=== PATIENT | male | born 1935 | race Caucasian/White ===

== ENCOUNTER → 2020-03-08 09:03 | Outpatient (BNVA) | payer MEDICARE, SELFPAY | PROVIDERS: PCP Internal Medicine; Referring Provider Internal Medicine; Visit Provider Internal Medicine | DX: I48.21 Permanent atrial fibrillation (principal); E78.5 Hyperlipidemia, unspecified; Z91.030 Bee allergy status; Z79.01 Long term (current) use of anticoagulants; Z79.899 Other long term (current) drug therapy | CPT/HCPCS: 93005; 99212 ==

== ENCOUNTER 2020-04-26 08:22 | Outpatient (REF) | payer MEDICARE, SELFPAY ==
[2020-04-26 09:07] LABS: MANUAL DIFF FLAG NO
[2020-04-26 09:13] LABS: Basophils Absolute Auto 0.1 X10*3/uL (0.0-0.2); Basophils Percent Auto 0.8 % (0-2); Eosinophils Absolute Auto 0.3 X10*3/uL (0.0-0.4); Eosinophils Percent Auto 4.1 % (0-4); Hematocrit 44.2 % (42-52); Hemoglobin 14.5 g/dl (14.0-18.0); Imm Gran Abs Auto 0.03 X10*3/uL (0.00-0.03); Imm Gran Pct Auto 0.5 % (0.0-0.4); Lymphocytes Absolute Auto 2.3 X10*3/uL (1.2-4.9); Lymphocytes Percent Auto 34.7 % (20-40); Mean Corpuscular HGB Conc 32.8 g/dl (31.0-36.0); Mean Corpuscular Volume 97.6 fL (80-98); Mean Platelet Volume 12.2 fL (9.4-12.4); Monocytes Absolute Auto 0.8 X10*3/uL (0.1-1.2); Monocytes Percent Auto 12.4 % (2-11); NRBC Pct Auto 0.3 /100WBC (0.0-0.2); Neutrophils Absolute Auto 3.1 X10*3/uL (2.0-8.3); Neutrophils Percent Auto 47.5 % (45-73); Platelet Count 169 X10*3/uL (160-400); Red Blood Count 4.53 X10*6/uL (4.60-5.80); Red Cell Distribution Width 15.3 % (11.0-16.0); White Blood Count 6.5 X10*3/uL (4.8-10.8)
[2020-04-26 09:52] LABS: Alanine Aminotransferase 16 U/L (0-40); Albumin Level 4.3 g/dL (3.5-5.0); Anion Gap 11 (12-20); Aspartate Amino Transferase 21 U/L (5-37); Bilirubin Total 1.2 mg/dL (0.0-1.0); Blood Urea Nitrogen 12 mg/dL (9-16); Carbon Dioxide 29 mmol/L (22-29); Chloride 104 mmol/L (96-108); Estimated Glomerular Filt Rate > 60; Glucose Fasting 86 mg/dL (60-99); Potassium 4.5 mmol/l (3.3-5.1); Sodium 139 mmol/L (135-145)
[2020-04-26 09:53] LABS: Alkaline Phosphatase 47 U/L (39-117); Cholesterol 142 mg/dL; HDL Cholesterol 40 mg/dL; LDL Cholesterol Calculated 89 mg/dl; Triglycerides 67 mg/dL
[2020-04-26 10:17] LABS: TSH reflex Free T4 1.87 mIU/mL (0.32-4.0)
== END 2020-04-26 08:23 | disposition home or self-care (01) ==
LOC: HO.LAB 08:22
PROVIDERS: PCP Internal Medicine; Visit Provider Internal Medicine
DX: E78.00 Pure hypercholesterolemia, unspecified (principal); I48.91 Unspecified atrial fibrillation; E66.9 Obesity, unspecified
CPT/HCPCS: 36415; 80053; 80061; 84443; 85025

== ENCOUNTER → 2021-03-01 10:25 | Outpatient (REF) | payer MEDICARE, SELFPAY ==
--- NOTE | 2021-03-01 10:41 | HM_ITS ---
Total monitoring time 18 hours 52 minutes. Underlying rhythm is atrial fibrillation. Minimum 32/Min. Maximum 94/Min. Average 56/Min. There were 15 pauses. Longest 2.8 seconds at 03:22am. Very rare PVCs. No patient events. MTDD
--- NOTE | 2021-03-01 10:41 | CA_ITS ---
Transthoracic Echocardiogram Patient (Last, First, Middle): Steve Oden A Gender: Male Date of : 1935 Age: 85 Procedure Date: 03/01/2021 Procedure Type: Transthoracic Echocardiogram Location: OP Height: 180.34 cm Weight: 100.7 kg BSA: 2.20 m2 Heart Rate: bpm BP: 119 / 62 mmHg Practice Advisor: TONY Referring MD: Woo Bernal MD Environmental Education Specialist: Tomasz John MD Symptoms: I48.21 - Permanent atrial fibrillation Study Quality: Good ECG Rhythm: Atrial Fibrillation Conclusions: - 1. Normal LV systolic function with mild LVH with LVEF of 60 65% 2. At least moderate biatrial enlargement 3. Mild aortic regurgitation 4. Normal RV systolic pressure 5. No gross pericardial effusion Findings Left Ventricle Normal left ventricular size and systolic function. There is mildly increased left ventricular wall thickness. The visually estimated ejection fraction is between 60-65%. Diastolic function is indeterminate on the basis of available data. Right Ventricle Normal right ventricular cavity size and systolic function. Atria Moderate biatrial enlargement. There is no evidence of interatrial shunt. Aortic Valve There is mild calcification of the aortic valve. There is no aortic valve stenosis. There is mild aortic valve regurgitation. Mitral Valve There is mild anterior and posterior mitral leaflet thickening. There is trace mitral valve regurgitation. There is no mitral valve stenosis. Pulmonic Valve The pulmonic valve was not well visualized. Tricuspid Valve Normal tricuspid valve structure. There is mild tricuspid valve regurgitation. The right ventricular systolic pressure is normal. The right ventricular systolic pressure is 25 mmHg. Normal right atrial pressure. There is no evidence of pulmonary hypertension. Great Vessels All visible segments of the aorta are normal in size. The pulmonary artery was not well visualized. Venous The inferior vena cava is normal in size and collapses greater than 50% with inspiration. Pericardium/Pleural There is no evidence of pericardial effusion. Prior Study Comparison Changes noted compared to prior study. RV systolic pressure measured to be within normal limits on this study Measurements 2D Linear Measurements IVSd: 1.28 0.6-0.9/0.6-1.0 cm LVIDd: 4.60 3.9-5.3/4.2-5.9 cm LVIDd Index: 2.09 2.4-3.2/2.2-3.1 cm/m2 LVIDs: 2.74 2.0-3.6 cm LVPWd: 1.26 0.7-1.1 cm Ao Root: 3.50 2.1-3.5 cm LA Diam: 4.30 2.7-3.8/3.0-4.0 cm LAIDs Index: 1.95 1.5-2.3 cm/m2 LV Mass: 277.32 67-162/88-224 g LV Mass Index: 126.06 43-95/49-115 g/m2 LVOT Diam: 2.40 3.0+(-)1.3 cm 2D Systolic Function EF 4C: 68.90 >55% EF 2C: 64.30 >55% EF BiP: 65.10 >55% Mitral Valve MV Pk E: 0.89 MV Decel Time: 181.00 E'Lateral: 9.77 E'Medial: 11.10 E/E' Med: 8.00 E/E' Lat: 9.10 PHT: 53.00 MVA PHT: 4.15 Decel Smyth: 5.11 Aortic Valve AoV Pk Kyaw: 1.32 AoV Pk Grad: 7.00 AI Pk Kyaw: 2.57 AI Smyth: 1.47 LVOT LVOT Pk Kyaw: 0.85 LVOT Mn Kyaw: 0.55 LVOT VTI: 0.17 LVOT Pk Grad: 3.00 LVOT Mn Grad: 2.00 LVOT Diam: 2.40 LVOT Area: 4.52 Diastolic Function MV Pk E: 0.89 E'Medial: 11.10 E/E' Med: 8.00 E' Laterial: 9.77 E/E' Lat: 9.10 Right Ventricle TAPSE (mm): 2.49 Tricuspid Valve TR Pk Kyaw: 2.36 TR Pk Grad: 22.00 RA Press: 3.00 RVSP: 25.00 Great Vessels Aorta Ao Root-2D: 3.50 2.0-3.7 cm Updated in Other Vendor System with Status of Final Tomasz John MD electronically signed on 03/01/2021 3:02:16 PM with status of Final
== END ==
LOC: HO.CARD 10:25
PROVIDERS: PCP Internal Medicine; Visit Provider Internal Medicine
DX: I48.21 Permanent atrial fibrillation (principal)
CPT/HCPCS: 93242; 93306

== ENCOUNTER → 2021-03-09 08:40 | Outpatient (BNVA) | payer MEDICARE, SELFPAY | PROVIDERS: PCP Internal Medicine; Referring Provider Internal Medicine; Visit Provider Internal Medicine | DX: I48.21 Permanent atrial fibrillation (principal); E78.5 Hyperlipidemia, unspecified; Z79.01 Long term (current) use of anticoagulants | CPT/HCPCS: 93005; 99212 ==

== ENCOUNTER 2021-04-21 07:32 | Outpatient (REF) | payer MEDICARE, SELFPAY ==
[2021-04-21 07:44] LABS: MANUAL DIFF FLAG NO
[2021-04-21 08:42] LABS: Basophils Percent Auto 0.6 % (0-2); Eosinophils Absolute Auto 0.3 X10*3/uL (0.0-0.4); Eosinophils Percent Auto 4.7 % (0-4); Hematocrit 45.6 % (42.0-52.0); Hemoglobin 14.9 g/dl (14.0-18.0); Imm Gran Abs Auto 0.03 X10*3/uL (0.00-0.03); Imm Gran Pct Auto 0.5 % (0.0-0.4); Lymphocytes Absolute Auto 2.2 X10*3/uL (1.2-4.9); Lymphocytes Percent Auto 34.5 % (20-40); Mean Corpuscular HGB Conc 32.7 g/dl (31.0-36.0); Mean Corpuscular Hemoglobin 32.2 pg (27.0-33.0); Mean Corpuscular Volume 98.5 fL (80.0-98.0); Mean Platelet Volume 12.2 fL (9.4-12.4); Monocytes Absolute Auto 0.7 X10*3/uL (0.1-1.2); Monocytes Percent Auto 11.7 % (2-11); Platelet Count 181 X10*3/uL (160-400); Red Blood Count 4.63 X10*6/uL (4.60-5.80); Red Cell Distribution Width 15.2 % (11.0-16.0); White Blood Count 6.3 X10*3/uL (4.8-10.8)
[2021-04-21 09:04] LABS: Alanine Aminotransferase 17 U/L (0-40); Albumin Level 4.3 g/dL (3.5-5.0); Alkaline Phosphatase 52 U/L (39-117); Anion Gap 12 (12-20); Aspartate Amino Transferase 21 U/L (5-37); Bilirubin Total 1.3 mg/dL (0.0-1.0); Blood Urea Nitrogen 9 mg/dL (9-16); Calcium 9.4 mg/dL (8.4-10.2); Carbon Dioxide 30 mmol/L (22-29); Chloride 105 mmol/L (96-108); Cholesterol 144 mg/dL; Estimated Glomerular Filt Rate > 60; Glucose Random 88 mg/dL (60-115); HDL Cholesterol 42 mg/dL; LDL Cholesterol Calculated 88 mg/dl; Potassium 4.5 mmol/L (3.3-5.1); Sodium 142 mmol/L (135-145); Total Protein 8.2 g/dL (6.5-8.0); Triglycerides 71 mg/dL
[2021-04-21 09:19] LABS: B Type Natriuretic Peptide 156 pg/mL (<100)
[2021-04-21 09:27] LABS: Free T4 (Free Thyroxine) 0.84 ng/dL (0.71-1.85); Thyroid Stimulating Hormone 1.97 uIU/mL (0.32-4.0)
[2021-04-21 09:54] LABS: Folate 19.8 ng/mL (> or = 4.0); Vitamin B12 362 pg/mL (200-900)
== END 2021-04-21 07:33 | disposition home or self-care (01) ==
LOC: HO.LAB 07:32
PROVIDERS: PCP Internal Medicine; Visit Provider Internal Medicine
DX: E78.00 Pure hypercholesterolemia, unspecified (principal); I48.21 Permanent atrial fibrillation
CPT/HCPCS: 36415; 80053; 80061; 82607; 82746; 83880; 84439; 84443; 85025

== ENCOUNTER → 2021-10-24 11:45 | Outpatient (REF) | payer MEDICARE, SELFPAY ==
--- NOTE | 2021-10-24 11:51 | ECG_ITS ---
Test Reason : PRE OP Blood Pressure : / mmHG Vent. Rate : 056 BPM Atrial Rate : 000 BPM P-R Int : 000 ms QRS Dur : 098 ms QT Int : 436 ms P-R-T Axes : 000 042 025 degrees QTc Int : 420 ms Atrial fibrillation with slow ventricular response Abnormal ECG When compared with ECG of 20-AUG-2009 08:08, Nonspecific T wave abnormality no longer evident in Anterior leads Referred By: Elzbieta Trujillo Electronically Signed By:MORRIS OLGUIN MD
[2021-10-24 12:12] LABS: Hematocrit 42.4 % (42.0-52.0); Hemoglobin 13.9 g/dl (14.0-18.0); Mean Corpuscular HGB Conc 32.8 g/dl (31.0-36.0); Mean Corpuscular Hemoglobin 32.2 pg (27.0-33.0); Mean Corpuscular Volume 98.1 fL (80.0-98.0); Mean Platelet Volume 11.2 fL (9.4-12.4); Platelet Count 169 X10*3/uL (160-400); Red Blood Count 4.32 X10*6/uL (4.60-5.80); Red Cell Distribution Width 15.2 % (11.0-16.0); White Blood Count 6.2 X10*3/uL (4.8-10.8)
[2021-10-24 12:15] LABS: INTERNATIONAL NORM RATIO 1.3 (0.9-1.1); Prothrombin Time 15.4 SEC (9.9-13.0)
[2021-10-24 13:01] LABS: TSH reflex Free T4 1.48 uIU/mL (0.32-4.0)
[2021-10-24 13:45] LABS: Anion Gap 11 (12-20); Blood Urea Nitrogen 11 mg/dL (9-16); Calcium 9.1 mg/dL (8.4-10.2); Carbon Dioxide 28 mmol/L (22-29); Chloride 105 mmol/L (96-108); Estimated Glomerular Filt Rate > 60; Glucose Random 87 mg/dL (60-115); Potassium 4.1 mmol/L (3.3-5.1); Sodium 140 mmol/L (135-145)
== END ==
LOC: HO.CARD 11:45
PROVIDERS: PCP Internal Medicine; Visit Provider Nurse Practitioner Family
DX: Z01.818 Encounter for other preprocedural examination (principal); I48.91 Unspecified atrial fibrillation
CPT/HCPCS: 36415; 80048; 84443; 85027; 85610; 93005

== ENCOUNTER → 2022-03-02 10:47 | Outpatient (REF) | payer MEDICARE, SELFPAY ==
--- NOTE | 2022-03-02 10:51 | HM_ITS ---
Conclusion: 1. Patient was monitored for total period of 3 days and 1 hour 2. Baseline was atrial fibrillation with average heart of 57 beats per minute with lowest heart rate of 28 beats per minute during sleeping hours 3. Multiple pauses greater than 3 seconds noted most of them during sleeping hours with the longest pause of 3.2 seconds 4. Occasional PVCs noted 5. Frequent slow ventricular response to atrial fibrillation with 40% of time heart rate below 60 beats per minute 6. Patient reported 1 event without symptoms correlated with AFib MTDD
== END ==
LOC: HO.CARD 10:47
PROVIDERS: Visit Provider Internal Medicine
DX: I48.21 Permanent atrial fibrillation (principal)
CPT/HCPCS: 93242

== ENCOUNTER 2022-04-09 09:04 | Outpatient (REF) | payer MEDICARE, SELFPAY ==
[2022-04-09 09:15] LABS: MANUAL DIFF FLAG NO
[2022-04-09 09:55] LABS: Basophils Absolute Auto 0.1 X10*3/uL (0.0-0.2); Eosinophils Absolute Auto 0.3 X10*3/uL (0.0-0.4); Eosinophils Percent Auto 4.7 % (0-4); Hematocrit 44.5 % (42.0-52.0); Hemoglobin 14.8 g/dl (14.0-18.0); Imm Gran Abs Auto 0.03 X10*3/uL (0.00-0.03); Imm Gran Pct Auto 0.5 % (0.0-0.4); Lymphocytes Percent Auto 33.3 % (20-40); Mean Corpuscular HGB Conc 33.3 g/dl (31.0-36.0); Mean Corpuscular Hemoglobin 32.2 pg (27.0-33.0); Mean Corpuscular Volume 96.7 fL (80.0-98.0); Mean Platelet Volume 11.8 fL (9.4-12.4); Monocytes Absolute Auto 0.8 X10*3/uL (0.1-1.2); Monocytes Percent Auto 12.6 % (2-11); Neutrophils Absolute Auto 2.9 x10*3/uL (2.0-8.3); Neutrophils Percent Auto 47.9 % (45-73); Platelet Count 176 X10*3/uL (160-400); Red Cell Distribution Width 15.1 % (11.0-16.0); White Blood Count 6.1 X10*3/uL (4.8-10.8)
[2022-04-09 11:33] LABS: Alanine Aminotransferase 18 U/L (0-40); Albumin Level 4.3 g/dL (3.5-5.0); Alkaline Phosphatase 51 U/L (39-117); Anion Gap 9 (12-20); Aspartate Amino Transferase 20 U/L (5-37); Bilirubin Total 1.3 mg/dL (0.0-1.0); Blood Urea Nitrogen 11 mg/dL (9-16); Calcium 9.1 mg/dL (8.4-10.2); Carbon Dioxide 30 mmol/L (22-29); Chloride 106 mmol/L (96-108); Cholesterol 151 mg/dL; Estimated Glomerular Filt Rate > 60; Free T4 (Free Thyroxine) 0.91 ng/dL (0.71-1.85); Glucose Random 90 mg/dL (60-115); HDL Cholesterol 44 mg/dL; LDL Cholesterol Calculated 90 mg/dl; Potassium 4.3 mmol/L (3.3-5.1); Sodium 141 mmol/L (135-145); Thyroid Stimulating Hormone 1.93 uIU/mL (0.32-4.0); Triglycerides 86 mg/dL
[2022-04-09 11:48] LABS: Folate 16.8 ng/mL (> or = 4.0); Vitamin B12 351 pg/mL (200-900)
== END 2022-04-09 09:05 | disposition home or self-care (01) ==
LOC: HO.LAB 09:04
PROVIDERS: PCP Internal Medicine; Visit Provider Internal Medicine
DX: E78.00 Pure hypercholesterolemia, unspecified (principal); E78.5 Hyperlipidemia, unspecified
CPT/HCPCS: 36415; 80053; 80061; 82607; 82746; 84439; 84443; 85025

== ENCOUNTER → 2022-05-16 14:26 | Outpatient (BNVA) | payer MEDICARE, SELFPAY | PROVIDERS: PCP Internal Medicine; Referring Provider Internal Medicine; Visit Provider Internal Medicine | DX: I48.21 Permanent atrial fibrillation (principal) | CPT/HCPCS: 93005; 99212 ==

== ENCOUNTER 2022-10-15 09:19 | Outpatient (REF) | payer MEDICARE, SELFPAY ==
[2022-10-15 09:33] LABS: MANUAL DIFF FLAG NO
[2022-10-15 10:55] LABS: Basophils Absolute Auto 0.1 X10*3/uL (0.0-0.2); Basophils Percent Auto 0.9 % (0-2); Eosinophils Absolute Auto 0.3 X10*3/uL (0.0-0.4); Hematocrit 40.7 % (42.0-52.0); Hemoglobin 13.3 g/dl (14.0-18.0); Imm Gran Abs Auto 0.04 X10*3/uL (0.00-0.03); Imm Gran Pct Auto 0.7 % (0.0-0.4); Lymphocytes Absolute Auto 1.9 X10*3/uL (1.2-4.9); Lymphocytes Percent Auto 32.1 % (20-40); Mean Corpuscular HGB Conc 32.7 g/dl (31.0-36.0); Mean Corpuscular Hemoglobin 31.4 pg (27.0-33.0); Mean Corpuscular Volume 96.2 fL (80.0-98.0); Mean Platelet Volume 11.3 fL (9.4-12.4); Monocytes Absolute Auto 0.8 X10*3/uL (0.1-1.2); Monocytes Percent Auto 13.3 % (2-11); Neutrophils Absolute Auto 2.8 x10*3/uL (2.0-8.3); Platelet Count 213 X10*3/uL (160-400); Red Blood Count 4.23 X10*6/uL (4.60-5.80); Red Cell Distribution Width 15.3 % (11.0-16.0); White Blood Count 5.9 X10*3/uL (4.8-10.8)
[2022-10-15 11:42] LABS: Alanine Aminotransferase 16 U/L (0-40); Albumin Level 3.9 g/dL (3.5-5.0); Alkaline Phosphatase 50 U/L (39-117); Anion Gap 11 (12-20); Aspartate Amino Transferase 18 U/L (5-37); Bilirubin Total 1.2 mg/dL (0.0-1.0); Blood Urea Nitrogen 11 mg/dL (9-16); Carbon Dioxide 26 mmol/L (22-29); Chloride 108 mmol/L (96-108); Cholesterol 142 mg/dL; Estimated Glomerular Filt Rate > 60; Glucose Random 84 mg/dL (60-115); HDL Cholesterol 39 mg/dL; LDL Cholesterol Calculated 86 mg/dl; Potassium 4.1 mmol/L (3.3-5.1); Sodium 141 mmol/L (135-145); Total Protein 7.8 g/dL (6.5-8.0); Triglycerides 87 mg/dL
[2022-10-15 12:12] LABS: Folate 15.8 ng/mL (> or = 4.0); Free T4 (Free Thyroxine) 0.89 ng/dL (0.71-1.85); Thyroid Stimulating Hormone 1.95 uIU/mL (0.32-4.0); Vitamin B12 462 pg/mL (200-900)
== END 2022-10-15 09:20 | disposition home or self-care (01) ==
LOC: HO.LAB 09:19
PROVIDERS: PCP Internal Medicine; Visit Provider Internal Medicine
DX: I48.21 Permanent atrial fibrillation (principal); E78.00 Pure hypercholesterolemia, unspecified
CPT/HCPCS: 36415; 80053; 80061; 82607; 82746; 84439; 84443; 85025

== ENCOUNTER 2022-11-16 10:04 | Outpatient (REF) | payer MEDICARE, SELFPAY ==
[2022-11-16 10:23] LABS: MANUAL DIFF FLAG NO
[2022-11-16 10:52] LABS: Basophils Percent Auto 0.7 % (0-2); Eosinophils Absolute Auto 0.3 X10*3/uL (0.0-0.4); Eosinophils Percent Auto 6.5 % (0-4); Hematocrit 40.6 % (42.0-52.0); Hemoglobin 13.3 g/dl (14.0-18.0); Imm Gran Abs Auto 0.01 X10*3/uL (0.00-0.03); Imm Gran Pct Auto 0.2 % (0.0-0.4); Immature Retic Fraction 12.1 % (2.3-13.4); Lymphocytes Absolute Auto 1.6 X10*3/uL (1.2-4.9); Lymphocytes Percent Auto 34.8 % (20-40); Mean Corpuscular HGB Conc 32.8 g/dl (31.0-36.0); Mean Corpuscular Volume 97.8 fL (80.0-98.0); Mean Platelet Volume 11.5 fL (9.4-12.4); Monocytes Absolute Auto 0.6 X10*3/uL (0.1-1.2); Monocytes Percent Auto 13.7 % (2-11); Neutrophils Percent Auto 44.1 % (45-73); Platelet Count 169 X10*3/uL (160-400); Red Blood Count 4.15 X10*6/uL (4.60-5.80); Red Cell Distribution Width 15.9 % (11.0-16.0); Retic HGB Equivalent 35.8 pg (30.0-35.0); Reticulocyte Percent 1.8 % (0.5-1.8); Reticulocytes Absolute 0.076 X10*6/uL (0.026-0.095); White Blood Count 4.5 X10*3/uL (4.8-10.8)
[2022-11-16 11:52] LABS: Iron 112 mcg/dL (45-160); Percent Iron Saturation 40 % (15-50); Total Iron Binding Capacity 282 mcg/dL (228-428); Unsaturated Iron Binding 170 ug/dL
[2022-11-16 12:10] LABS: Ferritin 158 ng/mL (20-250)
== END 2022-11-16 10:05 | disposition home or self-care (01) ==
LOC: HO.LAB 10:04
PROVIDERS: PCP Internal Medicine; Visit Provider Internal Medicine
DX: D64.9 Anemia, unspecified (principal)
CPT/HCPCS: 36415; 82728; 83540; 85025; 85045

== ENCOUNTER 2023-04-19 08:14 | Outpatient (REF) | payer MEDICARE, SELFPAY ==
[2023-04-19 08:36] LABS: MANUAL DIFF FLAG NO
[2023-04-19 09:21] LABS: Basophils Percent Auto 0.7 % (0-2); Eosinophils Absolute Auto 0.3 X10*3/uL (0.0-0.4); Eosinophils Percent Auto 4.6 % (0-4); Hematocrit 41.3 % (42.0-52.0); Hemoglobin 13.8 g/dl (14.0-18.0); Imm Gran Abs Auto 0.02 X10*3/uL (0.00-0.03); Imm Gran Pct Auto 0.4 % (0.0-0.4); Lymphocytes Absolute Auto 1.7 X10*3/uL (1.2-4.9); Lymphocytes Percent Auto 30.2 % (20-40); Mean Corpuscular HGB Conc 33.4 g/dl (31.0-36.0); Mean Corpuscular Hemoglobin 32.5 pg (27.0-33.0); Mean Corpuscular Volume 97.4 fL (80.0-98.0); Mean Platelet Volume 11.6 fL (9.4-12.4); Monocytes Absolute Auto 0.6 X10*3/uL (0.1-1.2); Monocytes Percent Auto 11.2 % (2-11); Neutrophils Percent Auto 52.9 % (45-73); Platelet Count 164 X10*3/uL (160-400); Red Blood Count 4.24 X10*6/uL (4.60-5.80); Red Cell Distribution Width 15.7 % (11.0-16.0); White Blood Count 5.7 X10*3/uL (4.8-10.8)
[2023-04-19 09:50] LABS: Alanine Aminotransferase 13 U/L (0-40); Albumin Level 4.2 g/dL (3.5-5.0); Alkaline Phosphatase 52 U/L (39-117); Anion Gap 13 (12-20); Aspartate Amino Transferase 18 U/L (5-37); Bilirubin Total 1.2 mg/dL (0.0-1.0); Blood Urea Nitrogen 11 mg/dL (9-16); Calcium 9.4 mg/dL (8.4-10.2); Carbon Dioxide 27 mmol/L (22-29); Chloride 107 mmol/L (96-108); Cholesterol 134 mg/dL (<200); Estimated Glomerular Filt Rate > 60; Glucose Random 89 mg/dL (60-115); HDL Cholesterol 41 mg/dL (>40); LDL Cholesterol Calculated 80 mg/dL (<100); Potassium 4.4 mmol/L (3.3-5.1); Sodium 143 mmol/L (135-145); Total Protein 8.3 g/dL (6.5-8.0); Triglycerides 67 mg/dL (<150)
[2023-04-19 09:57] LABS: Free T4 (Free Thyroxine) 0.83 ng/dL (0.71-1.85); Thyroid Stimulating Hormone 1.82 uIU/mL (0.32-4.0)
[2023-04-19 10:19] LABS: Folate 14.2 ng/mL (> or = 4.0); Vitamin B12 463 pg/mL (200-900)
== END 2023-04-19 08:15 | disposition home or self-care (01) ==
LOC: HO.LAB 08:14
PROVIDERS: PCP Internal Medicine; Visit Provider Internal Medicine
DX: I48.21 Permanent atrial fibrillation (principal); E78.00 Pure hypercholesterolemia, unspecified
CPT/HCPCS: 36415; 80053; 80061; 82607; 82746; 84439; 84443; 85025

== ENCOUNTER 2023-04-22 09:23 | Outpatient (AMB) | payer MEDICARE, SELFPAY ==
[2023-04-22 09:24] VITALS: BP 136/70; PULSE 57; O2SAT 96; BMI 34.2
--- NOTE | 2023-04-22 09:24 | A.OFFPC_ITS ---
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 Required: No Accompanied by: Self / Same As Patient Allergies bee pollen [Bee Stings] Allergy (Unknown, Verified 04/22/23 09:25) UNKNOWN Tobacco use date assessed: 10/17/22 Fall risk assessment: No Falls in past year Last assessed Fall Risk: 04/22/23 Dental Screening Dental Screen Date: 04/22/23 Did you have a dental visit in the last 12 months?: No Did you have a dental problem in the last 6 months where you did not have access to dental care?: No Was dental information given to patient?: No (no teeth) HPI anemia, Afib HPI Details 87-year-old obese male with atrial fibri llation hypercholesterolemia coming in for follow-up. Last seen in October 2022.. Patient did receive the COVID and flu shot. Patient is [facility]'s has a history. 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 Son No problems noted. Social History Housing: House Alcohol intake: current Alcohol intake frequency: does not drink Alcohol type: beer Patient Tobacco Use Status: Former Tobacco user Tobacco use type: Cigarette e-Cigarette/Vaping Use: Never Used Second Hand Smoke Exposure: No service: No Current occupational status: retired Cognitive needs: No Hearing needs: No Vision needs: Yes (glasses) Questionnaire Thrive Questionnaire Date Thrive assessed: 10/17/22 JEANINE-7 AMB Questionnaire JEANINE-7 Date JEANINE - 7 assessed: 10/17/22 Source: Developed by Drs. Gopi Lee, Andra Germain, Antwan Iglesias and colleagues, with an educational david from [employer]. Physical exam (Primary Care) Vital Signs: Last Vital Signs Pulse 57 04/22/23 09:24 BP 136/70 04/22/23 09:24 Pulse Ox 96 04/22/23 09:24 Oxygen Delivery Method Room Air 04/22/23 09:24 BMI result Body Mass Index 34.2 Tobacco/Smoking Status: Tobacco use Status Tobacco use date assessed 10/17/22 04/22/23 09:26 Patient Tobacco Use Status Former Tobacco user 04/22/23 09:26 Tobacco use type Cigarette 04/22/23 09:26 e-Cigarette/Vaping Use Never Used 04/22/23 09:26 Thrive Assessment: Date of Thrive Assessment Date Thrive assessed 10/17/22 04/22/23 09:26 Const General: alert; No acute distress Eyes Conjunctivae: conjunctivae normal Resp Auscultation: clear to auscultation bilaterally Cardio Rate: regular rate Rhythm: regular rhythm GI Inspection: Yes normal to inspection Extrem General: Yes normal to inspection and No edema Assessment and Plan Assessment & Plan (1) Obesity (BMI 30-39.9): Code(s): E66.9 - Obesity, unspecified Plan: Diet and exercise (2) Hyperlipidemia, unspecified: Code(s): E78.5 - Hyperlipidemia, unspecified Qualifiers: Hyperlipidemia type: unspecified Qualified Code(s): E78.5 - Hyperlipidemia, unspecified Plan: Avoid fried foods, chicken skin, eggs, butter margarine, pastries and meat. Be it pork or beef they have a lot of cholesterol LDL goal of less than 130 and triglyceride of less than 150 (3) Permanent atrial fibrillation: Code(s): I48.21 - Permanent atrial fibrillation Plan: Continue with anticoagulation (4) Anemia: Code(s): D64.9 - Anemia, unspecified Plan: Stable continue to monitor Orders: Orders Complete Blood Count Auto Diff 6 Months I48.21 - Permanent atrial fibrillation B Type Natriuretic Peptide 6 Months I48.21 - Permanent atrial fibrillation Comprehensive Met. Panel 6 Months I48.21 - Permanent atrial fibrillation Coding Level of Care Code Est Pt Level 4 (15849) Diagnoses Obesity (BMI 30-39.9) E66.9 Hyperlipidemia, unspecified hyperlipidemia type E78.5 Hyperlipidemia type: unspecified Permanent atrial fibrillation I48.21 Anemia D64.9
== END 2023-04-22 09:50 | disposition home or self-care (01) ==
PROVIDERS: PCP Internal Medicine; Visit Provider Internal Medicine
DX: E78.5 Hyperlipidemia, unspecified (principal); E66.9 Obesity, unspecified; I48.21 Permanent atrial fibrillation; Z68.34 Body mass index [BMI] 34.0-34.9, adult; D64.9 Anemia, unspecified
CPT/HCPCS: 99214

== ENCOUNTER 2023-05-16 10:03 | Outpatient (AMB) | payer MEDICARE, SELFPAY ==
[2023-05-16 10:11] VITALS: BP 128/60; PULSE 56; BMI 33.9
--- NOTE | 2023-05-16 10:11 | A.OFFVIS_ITS ---
Intake Vital Signs 05/16/23 10:11 Height 5 ft 8 in Weight 222 lb 10.67 oz BMI 33.9 BP 128/60 Blood Pressure Location Lt brachial Position Sitting Pulse 56 Intake Visit Reasons: 1 YEAR FU Intake Note: 1 year follow w/ EKG Chief Clinical Officer Required: No Accompanied by: Self / Same As Patient Allergies bee pollen [Bee Stings] Allergy (Unknown, Verified 05/16/23 10:14) UNKNOWN Medication List - Last Reconciled 05/16/23 by Woo Bernal MD cholecalciferol (vitamin D3) 25 mcg PO DAILY mupirocin 2% 1 appl topical BID-TID rivaroxaban (Xarelto) 20 mg PO BEDTIME simvastatin 20 mg PO QPM HPI HPI Comments History of Present Illness Details Steve returns for follow-up regarding atrial fibrillation. He has permanent atrial fibrillation and doing well on Xarelto. Overall, doing good. No cardiac symptoms. [facility] Medical History (Updated 10/17/22 @ 08:46 by Vernon Cartwright MD) Preoperative clearance Vitamin D deficiency Obesity (BMI 30-39.9) Hyperlipidemia, unspecified half-way current use of anticoagulant Permanent atrial fibrillation Surgical History H/O eye surgery History of sinus surgery Family History Father Medical history unknown Mother Medical history unknown Sister No problems noted. Son No problems noted. Social History Housing: House Alcohol intake: current Alcohol intake frequency: does not drink Alcohol type: beer Patient Tobacco Use Status: Former Tobacco user Tobacco use type: Cigarette e-Cigarette/Vaping Use: Never Used Second Hand Smoke Exposure: No service: No Current occupational status: retired Cognitive needs: No Hearing needs: No Vision needs: Yes (glasses) Review of Systems Const Denies weakness ENT Denies dizziness Card Denies chest pain, Denies chest pain with activity, Denies syncope, Denies rapid heart rate, Denies pedal edema, Denies edema, Denies leg edema, Denies lightheadedness, Denies palpitations, Denies dyspnea, Denies dyspnea on exertion and Denies orthopnea Resp Denies cough, Denies dyspnea and Denies dyspnea on exertion GI Denies hematochezia and Denies change in stool character Musc Denies abnormal gait, Denies muscle cramps, Denies muscle weakness, Denies numbness, Denies radiating pain into limb and Denies tingling Neuro Denies abnormal gait, Denies dizziness, Denies syncope, Denies numbness, Denies tingling and Denies weakness Endo Denies palpitations Physical Exam Vital Signs: Last Vital Signs Pulse 56 05/16/23 10:11 BP 128/60 05/16/23 10:11 BMI result Body Mass Index 33.9 Const General: comfortable and no acute distress Orientation/consciousness: patient oriented x3 HEENT Other: Unremarkable Head: Yes normal to inspection Neck Neck: Yes normal visual inspection Chest Chest palpation & inspection: normal inspection of the chest Resp Auscultation: clear to auscultation bilaterally Cardio Palpation: normal PMI Heart sounds: S1 normal heart sound present, S2 normal heart sound present, no gallops, no murmurs and no rubs GI Palpation (GI): Soft to palpation Back/Spine/Pelvis Other: unremarkable Skin General skin exam: no rashes or lesions noted Neuro General: patient oriented x3 Extrem General: Yes normal to inspection Psych Mental Status: mental status grossly normal Office Procedures EKG Details: EKG with atrial fibrillation at a rate of 56/Min; incomplete right bundle-branch block pattern. [id number], Complete Assessment & Plan Assessment & Plan (1) Permanent atrial fibrillation: Code(s): I48.21 - Permanent atrial fibrillation Plan Last echocardiogram with LVEF of 60-60%, moderate biatrial enlargement, mild aortic regurgitation. In the last Holter monitor, underlying rhythm is atrial fibrillation with an average rate of 57/Min. Sleep time pauses noted but nothing of major significance. He is on no rate control medications at this time. Continue anticoagulation without changes. Otherwise, stable. Follow-up in 1 year. In the interim, to call with concerns. Coding Level of Care Code Est Pt Level 3 (51016) Diagnoses Permanent atrial fibrillation I48.21 CPT Codes EKG - CPT: 19165-[id number], Complete ([id number])
== END 2023-05-16 10:31 | disposition home or self-care (01) ==
PROVIDERS: Visit Provider Internal Medicine
DX: I48.21 Permanent atrial fibrillation (principal)
CPT/HCPCS: 93010; 99213

== ENCOUNTER → 2023-05-16 10:03 | Outpatient (BNVA) | payer MEDICARE, SELFPAY | PROVIDERS: Visit Provider Internal Medicine | DX: I48.21 Permanent atrial fibrillation (principal) | CPT/HCPCS: 93005; 99212 ==

== ENCOUNTER 2023-11-11 08:32 | Outpatient (REF) | payer MEDICARE, MEDICAID, SELFPAY ==
[2023-11-11 08:46] LABS: MANUAL DIFF FLAG NO
[2023-11-11 09:00] LABS: Basophils Percent Auto 0.4 % (0-2); Eosinophils Absolute Auto 0.2 X10*3/uL (0.0-0.4); Eosinophils Percent Auto 3.4 % (0-4); Hematocrit 38.7 % (42.0-52.0); Hemoglobin 13.2 g/dl (14.0-18.0); Imm Gran Abs Auto 0.03 X10*3/uL (0.00-0.03); Imm Gran Pct Auto 0.6 % (0.0-0.4); Lymphocytes Absolute Auto 1.5 X10*3/uL (1.2-4.9); Lymphocytes Percent Auto 30.6 % (20-40); Mean Corpuscular HGB Conc 34.1 g/dl (31.0-36.0); Mean Corpuscular Hemoglobin 32.4 pg (27.0-33.0); Mean Corpuscular Volume 95.1 fL (80.0-98.0); Mean Platelet Volume 11.3 fL (9.4-12.4); Monocytes Absolute Auto 0.7 X10*3/uL (0.1-1.2); Monocytes Percent Auto 14.1 % (2-11); Neutrophils Absolute Auto 2.5 x10*3/uL (2.0-8.3); Neutrophils Percent Auto 50.9 % (45-73); Platelet Count 142 X10*3/uL (160-400); Red Blood Count 4.07 X10*6/uL (4.60-5.80); Red Cell Distribution Width 16.1 % (11.0-16.0)
[2023-11-11 09:31] LABS: B Type Natriuretic Peptide 201 pg/mL (<100)
[2023-11-11 09:46] LABS: Alanine Aminotransferase 24 U/L (0-40); Albumin Level 4.2 g/dL (3.5-5.0); Alkaline Phosphatase 63 U/L (39-117); Anion Gap 10 (12-20); Aspartate Amino Transferase 28 U/L (5-37); Bilirubin Total 1.5 mg/dL (0.0-1.0); Blood Urea Nitrogen 13 mg/dL (9-16); Calcium 8.9 mg/dL (8.4-10.2); Carbon Dioxide 26 mmol/L (22-29); Chloride 107 mmol/L (96-108); Estimated Glomerular Filt Rate > 60; Glucose Random 94 mg/dL (60-115); Sodium 139 mmol/L (135-145); Total Protein 8.5 g/dL (6.5-8.0)
== END 2023-11-11 08:33 | disposition home or self-care (01) ==
LOC: HO.LAB 08:32
PROVIDERS: PCP Internal Medicine; Visit Provider Internal Medicine
DX: I48.21 Permanent atrial fibrillation (principal)
CPT/HCPCS: 36415; 80053; 83880; 85025

== ENCOUNTER 2023-11-13 09:05 | Outpatient (AMB) | payer MEDICARE, SELFPAY ==
[2023-11-13 09:09] VITALS: BP 130/60; PULSE 74; O2SAT 94; BMI 33.0
--- NOTE | 2023-11-13 09:09 | A.OFFPC_ITS ---
Vital Signs 11/13/23 09:09 Height 5 ft 8 in Blood Pressure Location Lt brachial Position Sitting Pulse Source Pulse Oximeter Oxygen Delivery Method Room Air Intake Visit Reasons: AWV [id number]/ Atrial fibrillation Associate Director Of Development: Not Required per policy Accompanied by: Self / Same As Patient Allergies bee pollen [Bee Stings] Allergy (Unknown, Verified 11/13/23 09:18) UNKNOWN Tobacco use date assessed: 11/13/23 Fall risk assessment: No Falls in past year Last assessed Fall Risk: 11/13/23 Dental Screening Dental Screen Date: 11/13/23 Did you have a dental visit in the last 12 months?: Yes Did you have a dental problem in the last 6 months where you did not have access to dental care?: No Was dental information given to patient?: Patient has dentist [facility] Medical History (Updated 10/17/22 @ 08:46 by Vernon Cartwright MD) Preoperative clearance Vitamin D deficiency Obesity (BMI 30-39.9) Hyperlipidemia, unspecified 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 Son No problems noted. Social History Housing: House Alcohol intake: current Alcohol intake frequency: does not drink Alcohol type: beer Patient Tobacco Use Status: Former Tobacco user Tobacco use type: Cigarette e-Cigarette/Vaping Use: Never Used Second Hand Smoke Exposure: No service: No Current occupational status: retired Cognitive needs: No Hearing needs: No Vision needs: Yes (glasses) Questionnaire PHQ-9 Over the last 2 weeks, how often have you been bothered by any of the following problems? 1. Little interest or pleasure in doing things: not at all 2. Feeling down, depressed, or hopeless: not at all 3. Trouble falling or staying asleep, or sleeping too much: not at all 4. Feeling tired or having little energy: not at all 5. Poor appetite or overeating: not at all 6. Feeling bad about yourself - or that you are a failure or have let yourself or your family down: not at all 7. Trouble concentrating on things, such as reading the newspaper or watching television: not at all 8. Moving or speaking so slowly that other people could have noticed. Or the opposite - being so fidgety or restless that you have been moving around a lot more than usual: not at all 9. Thoughts that you would be better off or of hurting yourself in some way: not at all Total score: 0 Depression Screening Interpretation: Negative Depression Screening Done: Yes Source: Developed by Drs. Gopi Lee, Andra Germain, Antwan Iglesias and colleagues, with an educational david from [employer]. Thrive Questionnaire Date Thrive assessed: 11/13/23 I am a: Patient What is your living situation today?: I have a steady place to live Within the past 12 months, did the food you bought not last and you didn't have the money to get more?: Never true Within the past 12 months, did you worry whether your food would run out before you got money to buy more?: Never true Do you have trouble paying for medicines?: No Do you have trouble getting transportation to medical appointments?: No Do you have trouble paying your heating and electricity bill?: No Do you have trouble taking care of your child, family member or friend?: No Do you have trouble with day-to-day activities such as bathing, preparing meals, shopping, managing finances, etc.?: No Are you currently unemployed and looking for a job?: No Are you interested in more education?: No Please select the resources that you would like help with: None THRIVE Score: 0 AUDIT C Alcohol Use Questionnaire (AUDIT-C) 1. How often do you have a drink containing alcohol?: Never 2. How many drinks containing alcohol do you have on a typical day when you are drinking?: 1 or 2 Total Score: 0 Score Reviewed/Action Taken: No JEANINE-7 AMB Questionnaire JEANINE-7 Date JEANINE - 7 assessed: 11/13/23 Feeling nervous, anxious, or on edge: 0 = Not at all Not being able to stop or control worryin = Not at all Worrying too much about different things: 0 = Not at all Trouble relaxin = Not at all Being so restless that it is hard to sit still: 0 = Not at all Becoming easily annoyed or irritable: 0 = Not at all Feeling afraid as if something awful might happen: 0 = Not at all Total JEANINE-7 score (0-4 normal; 5-9 mild; 10-14 moderate; 15-21 severe): 0 Source: Developed by Drs. Gopi Lee, Andra Germain, Antwan Iglesias and colleagues, with an educational david from [employer]. Physical exam (Primary Care) Tobacco/Smoking Status: Tobacco use Status Tobacco use date assessed 10/17/22 04/22/23 09:26 Patient Tobacco Use Status Former Tobacco user 04/22/23 09:26 Tobacco use type Cigarette 04/22/23 09:26 e-Cigarette/Vaping Use Never Used 04/22/23 09:26 Depression Screening Interpretation: Negative Thrive Assessment: Date of Thrive Assessment Date Thrive assessed 10/17/22 04/22/23 09:26 Coding Additional Codes PHQ-9 - 98148 - PHQ-9 Billing: ([id number])
--- NOTE | 2023-11-13 09:28 | AM.OFFVISMDC ---
Intake Vital Signs 11/13/23 09:09 11/13/23 09:30 Height 5 ft 8 in Weight 217 lb BMI 33.0 33.0 BP 130/60 Blood Pressure Location Lt brachial Position Sitting Pulse 74 Pulse Source Pulse Oximeter Pulse Oximetry (%) 94 Oxygen Delivery Method Room Air Intake Visit Reasons: AWV G0438/ Atrial fibrillation Allergies bee pollen [Bee Stings] Allergy (Unknown, Verified 11/13/23 09:18) UNKNOWN Medication List - Last Reconciled 11/13/23 by Vernon Cartwright MD cholecalciferol (vitamin D3) 25 mcg PO DAILY mupirocin 2% 1 appl topical BID-TID rivaroxaban (Xarelto) 20 mg PO BEDTIME simvastatin 20 mg PO QPM HPI AWV G0438/ Atrial fibrillation HPI Details 88-year-old obese male with hypercholesterolemia atrial fibrillation and chronic anemia coming in for annual well visit last seen in April 2023. Review of the notes has seen Cardiology in May 2023 last echocardiogram with normal ejection fraction moderate biatrial enlargement mild aortic regurg. 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 Son No problems noted. Social History (Updated 11/13/23 @ 09:43 by Vernon Cartwright MD) Housing: House Alcohol intake: current Alcohol intake frequency: does not drink Alcohol type: beer Comment: 3-6 non alcoholic beers a day Patient Tobacco Use Status: Former Tobacco user Tobacco use type: Cigarette Years Smoked: 1999 e-Cigarette/Vaping Use: Never Used Second Hand Smoke Exposure: No service: No Current occupational status: retired Cognitive needs: No Hearing needs: No Vision needs: Yes (glasses) Questionnaire PHQ-9 Over the last 2 weeks, how often have you been bothered by any of the following problems? 1. Little interest or pleasure in doing things: not at all 2. Feeling down, depressed, or hopeless: not at all 3. Trouble falling or staying asleep, or sleeping too much: not at all 4. Feeling tired or having little energy: not at all 5. Poor appetite or overeating: not at all 6. Feeling bad about yourself - or that you are a failure or have let yourself or your family down: not at all 7. Trouble concentrating on things, such as reading the newspaper or watching television: not at all 8. Moving or speaking so slowly that other people could have noticed. Or the opposite - being so fidgety or restless that you have been moving around a lot more than usual: not at all 9. Thoughts that you would be better off or of hurting yourself in some way: not at all Total score: 0 Depression Screening Interpretation: Negative Depression Screening Done: Yes 81103 - PHQ-9 Billing: Yes Source: Developed by Drs. Gopi Lee, Andra Germain, Antwan Iglesias and colleagues, with an educational david from [employer]. Review of Systems Const Denies poor appetite and Denies weakness Eyes Denies no additional complaints ENT Reports Normal hearing present, Denies dizziness, Denies nasal congestion, Denies tinnitus and Denies sore throat Card Denies chest pain, Denies syncope, Denies rapid heart rate and Denies dyspnea Resp Denies cough and Denies dyspnea GI Denies change in stool character, Reports constipation, Denies diarrhea, Denies nausea and Denies vomiting Denies dysuria and Denies urinary frequency Neuro Reports Normal hearing present, Denies confusion, Denies dizziness, Denies syncope and Denies weakness Psych Denies confusion Physical Exam Vital Signs: Last Vital Signs Pulse 74 11/13/23 09:09 BP 130/60 11/13/23 09:09 Pulse Ox 94 11/13/23 09:09 Oxygen Delivery Method Room Air 11/13/23 09:09 BMI result Body Mass Index 33.0 Const General: No confusion Orientation/consciousness: No confusion HEENT Head: Yes normocephalic Ears: external ears normal and TM's normal bilaterally Face and sinus: Yes normal facial exam Mouth: moist mucous membranes Throat: Yes tonsils normal Eyes Conjunctivae: conjunctivae normal Pupils: Equal, round and reactive pupils present and Pupil accommodation reflex normal Direct Ophthalmoscopy: normal light reflex Neck Neck: No lymphadenopathy Thyroid: Thyroid normal Chest Chest palpation & inspection: normal inspection of the chest Resp Effort & Inspection: normal respiratory effort and no audible wheezes Auscultation: clear to auscultation bilaterally, no crackles, no wheezes and lung sounds not diminished Cardio Rate: regular rate Rhythm: regular rhythm Peripheral pulses: radial pulses present and dorsalis pedis present GI Other: guaiac neg, prostate N Palpation (GI): no masses Auscultation: normal bowel sounds and normoactive bowel sounds Male General Exam: Yes normal external exam Skin General skin exam: no rashes or lesions noted Rashes: no rashes Neuro General: No confusion Cranial nerves: Yes Equal, round and reactive pupils present and Yes Normal hearing present Cognition (Neuro): normal cognition Gait exam (Neuro): Normal gait present Motor exam (neuro): 5/5 motor strength present throughout Deep tendon reflexes (DTR's): Right brachioradialis reflex intensity grade: 2+, Left brachioradialis reflex intensity grade: 2+, Right patellar reflex intensity grade: 2+ and Left patellar reflex intensity grade: 2+ Extrem General: No edema Assessment & Plan Assessment & Plan (1) Medicare annual wellness visit, subsequent: Code(s): Z00.00 - Encounter for general adult medical examination without abnormal findings Plan: Patient is advised to eat healthy, keep well hydrated, keep active and have adequate sleep. (2) Obesity (BMI 30-39.9): Code(s): E66.9 - Obesity, unspecified Plan: Diet and exercise (3) Hyperlipidemia, unspecified: Code(s): E78.5 - Hyperlipidemia, unspecified Qualifiers: Hyperlipidemia type: unspecified Qualified Code(s): E78.5 - Hyperlipidemia, unspecified Plan: Avoid fried foods, chicken skin, eggs, butter margarine, pastries and meat. Be it pork or beef they have a lot of cholesterol LDL goal of less than 100 and triglyceride of less than 150 on simvastatin 20 mg at bedtime (4) Permanent atrial fibrillation: Code(s): I48.21 - Permanent atrial fibrillation Plan: Continue with anticoagulation, follows up with Cardiology renal function test twice a day year. (5) Rectal bleed: Code(s): K62.5 - Hemorrhage of anus and rectum Plan: offered referral to Gastro but deny, surgeon, medication declined, declined constipation med. Guaiac negative Orders: Orders Comprehensive Met. Panel 6 Months I48.21 - Permanent atrial fibrillation B Type Natriuretic Peptide 6 Months I48.21 - Permanent atrial fibrillation Complete Blood Count Auto Diff 6 Months I48.21 - Permanent atrial fibrillation Lipid Panel 6 Months E78.00 - Pure hypercholesterolemia, unspecified, I48.21 - Permanent atrial fibrillation Quality Reporting (2019) Depression/Bipolar (159/160/161/177) PHQ-9: Total score: 0 Coding Level of Care Code Medicare Subsequent (G0439) Diagnoses Medicare annual wellness visit, subsequent Z00.00 Obesity (BMI 30-39.9) E66.9 Hyperlipidemia, unspecified hyperlipidemia type E78.5 Hyperlipidemia type: unspecified Permanent atrial fibrillation I48.21 Rectal bleed K62.5
[2023-11-13 09:30] VITALS: BMI 33.0
== END 2023-11-13 10:09 | disposition home or self-care (01) ==
PROVIDERS: PCP Internal Medicine; Visit Provider Internal Medicine
DX: Z00.00 Encounter for general adult medical examination without abnormal findings (principal); E78.5 Hyperlipidemia, unspecified; I48.21 Permanent atrial fibrillation; K62.5 Hemorrhage of anus and rectum
CPT/HCPCS: G0438

== ENCOUNTER 2024-05-11 08:40 | Outpatient (REF) | payer MEDICARE, SELFPAY ==
[2024-05-11 08:56] LABS: MANUAL DIFF FLAG NO
[2024-05-11 10:15] LABS: Basophils Absolute Auto 0.1 X10*3/uL (0.0-0.2); Basophils Percent Auto 0.8 % (0-2); Eosinophils Absolute Auto 0.3 X10*3/uL (0.0-0.4); Eosinophils Percent Auto 4.4 % (0-4); Hematocrit 40.4 % (42.0-52.0); Hemoglobin 13.4 g/dl (14.0-18.0); Imm Gran Abs Auto 0.04 X10*3/uL (0.00-0.03); Imm Gran Pct Auto 0.6 % (0.0-0.4); Lymphocytes Absolute Auto 1.9 X10*3/uL (1.2-4.9); Lymphocytes Percent Auto 29.3 % (20-40); Mean Corpuscular HGB Conc 33.2 g/dl (31.0-36.0); Mean Corpuscular Hemoglobin 31.9 pg (27.0-33.0); Mean Corpuscular Volume 96.2 fL (80.0-98.0); Mean Platelet Volume 11.2 fL (9.4-12.4); Monocytes Absolute Auto 0.9 X10*3/uL (0.1-1.2); Monocytes Percent Auto 13.3 % (2-11); NRBC Pct Auto 0.5 /100WBC (0.0-0.2); Neutrophils Absolute Auto 3.4 x10*3/uL (2.0-8.3); Neutrophils Percent Auto 51.6 % (45-73); Platelet Count 178 X10*3/uL (160-400); White Blood Count 6.6 X10*3/uL (4.8-10.8)
[2024-05-11 10:51] LABS: B Type Natriuretic Peptide 188 pg/mL (<100)
[2024-05-11 11:39] LABS: Alanine Aminotransferase 22 U/L (0-40); Alkaline Phosphatase 66 U/L (39-117); Anion Gap 7 (12-20); Aspartate Amino Transferase 25 U/L (5-37); Bilirubin Total 1.4 mg/dL (0.0-1.0); Blood Urea Nitrogen 12 mg/dL (9-16); Calcium 9.3 mg/dL (8.4-10.2); Carbon Dioxide 27 mmol/L (22-29); Chloride 110 mmol/L (96-108); Cholesterol 136 mg/dL (<200); Estimated Glomerular Filt Rate > 60; Glucose Random 84 mg/dL (60-115); HDL Cholesterol 47 mg/dL (>40); LDL Cholesterol Calculated 76 mg/dL (<100); Potassium 3.9 mmol/L (3.3-5.1); Sodium 140 mmol/L (135-145); Total Protein 8.5 g/dL (6.5-8.0); Triglycerides 68 mg/dL (<150)
== END 2024-05-11 08:41 | disposition home or self-care (01) ==
LOC: HO.LAB 08:40
PROVIDERS: PCP Internal Medicine; Visit Provider Internal Medicine
DX: I48.21 Permanent atrial fibrillation (principal); E78.00 Pure hypercholesterolemia, unspecified
CPT/HCPCS: 36415; 80053; 80061; 83880; 85025

== ENCOUNTER 2024-05-15 08:35 | Outpatient (AMB) | payer MEDICARE, SELFPAY ==
--- NOTE | 2024-05-15 08:43 | A.OFFPC_ITS ---
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 He reports a gradual weight loss of two to three pounds since the last consultation. Despite this, the patient's appetite remains normal, and there are no significant changes in his dietary habits reported. His blood pressure is well-controlled. Anemia has been a long-standing condition for the patient, noted for several years, but remains stable with no signs of active bleeding. The patient's laboratory values, including blood count, sodium, potassium, kidney function, and glucose levels, are within normal limits. There is no history of palpitations, dizziness, or chest pain, and he reports no issues with bowel movements or urination. The patient is keeping up with vaccinations, including the flu and COVID-19 vaccines. He is aware of the ongoing risk of COVID-19 and flu in the community, particularly in the current season. No other complaints or new symptoms are reported at this time. 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 Son No problems noted. Social History Housing: House Alcohol intake: current Alcohol intake frequency: does not drink Alcohol type: beer Comment: 3-6 non alcoholic beers a day Patient Tobacco Use Status: Former Tobacco user Tobacco use type: Cigarette Years Smoked: 1999 e-Cigarette/Vaping Use: Never Used Second Hand Smoke Exposure: No service: No Current occupational status: retired Cognitive needs: No Hearing needs: No Vision needs: Yes (glasses) Questionnaire PHQ-9 Over the last 2 weeks, how often have you been bothered by any of the following problems? 1. Little interest or pleasure in doing things: not at all 2. Feeling down, depressed, or hopeless: not at all 3. Trouble falling or staying asleep, or sleeping too much: not at all 4. Feeling tired or having little energy: not at all 5. Poor appetite or overeating: not at all 6. Feeling bad about yourself - or that you are a failure or have let yourself or your family down: not at all 7. Trouble concentrating on things, such as reading the newspaper or watching television: not at all 8. Moving or speaking so slowly that other people could have noticed. Or the opposite - being so fidgety or restless that you have been moving around a lot more than usual: not at all 9. Thoughts that you would be better off or of hurting yourself in some way: not at all Total score: 0 Depression Screening Interpretation: Negative Depression Screening Done: Yes 07346 - PHQ-9 Billing: Yes Source: Developed by Drs. Gopi Lee, Andra Germain, Antwan Iglesias and colleagues, with an educational david from [employer]. Thrive Questionnaire Date Thrive assessed: 05/15/24 I am a: Patient What is your living situation today?: I have a steady place to live Within the past 12 months, did the food you bought not last and you didn't have the money to get more?: Never true Within the past 12 months, did you worry whether your food would run out before you got money to buy more?: Never true Do you have trouble paying for medicines?: No Do you have trouble getting transportation to medical appointments?: No Do you have trouble paying your heating and electricity bill?: No Do you have trouble taking care of your child, family member or friend?: No Do you have trouble with day-to-day activities such as bathing, preparing meals, shopping, managing finances, etc.?: No Are you currently unemployed and looking for a job?: No Are you interested in more education?: No Please select the resources that you would like help with: None Currently or been in a relationship where the following occur: No concerns reported THRIVE Score: 0 AUDIT C Alcohol Use Questionnaire (AUDIT-C) 1. How often do you have a drink containing alcohol?: Never 2. How many drinks containing alcohol do you have on a typical day when you are drinking?: 1 or 2 Total Score: 0 Score Reviewed/Action Taken: No JEANINE-7 AMB Questionnaire JEANINE-7 Date JEANINE - 7 assessed: 05/15/24 Feeling nervous, anxious, or on edge: 0 = Not at all Not being able to stop or control worryin = Not at all Worrying too much about different things: 0 = Not at all Trouble relaxin = Not at all Being so restless that it is hard to sit still: 0 = Not at all Becoming easily annoyed or irritable: 0 = Not at all Source: Developed by Drs. Gopi Lee, Andra Germain, Antwan Iglesias and colleagues, with an educational david from [employer]. Physical exam (Primary Care) Vital Signs: Last Vital Signs Pulse 58 05/15/24 08:44 BP 130/64 05/15/24 08:44 Pulse Ox 93 05/15/24 08:44 Oxygen Delivery Method Room Air 05/15/24 08:44 BMI result Body Mass Index 32.9 Tobacco/Smoking Status: Tobacco use Status Tobacco use date assessed 05/15/24 05/15/24 08:50 Patient Tobacco Use Status Former Tobacco user 05/15/24 08:50 Tobacco use type Cigarette 05/15/24 08:50 e-Cigarette/Vaping Use Never Used 05/15/24 08:50 PHQ-9: PHQ-9 Score PHQ-9: Total score 0 05/15/24 08:50 Depression Screening Interpretation: Negative Thrive Assessment: Date of Thrive Assessment Date Thrive assessed 05/15/24 05/15/24 08:50 Currently or been in a relationship where the following occur: No concerns reported Const General: alert; No acute distress Eyes Conjunctivae: conjunctivae normal Resp Auscultation: clear to auscultation bilaterally Cardio Rate: regular rate Rhythm: regular rhythm GI Inspection: Yes normal to inspection Extrem General: Yes normal to inspection and No edema Coding Level of Care Code Est Pt Level 4 (58662) Diagnoses Anemia D64.9 Obesity (BMI 30-39.9) E66.9 Hyperlipidemia, unspecified hyperlipidemia type E78.5 Hyperlipidemia type: unspecified Permanent atrial fibrillation I48.21 Additional Codes PHQ-9 - 12488 - PHQ-9 Billing: Yes ([id number]) Assessment & Plan Assessment & Plan (1) Anemia: Code(s): D64.9 - Anemia, unspecified Category: Medical Plan: stable and chronic (2) Obesity (BMI 30-39.9): Code(s): E66.9 - Obesity, unspecified Category: Medical (3) Hyperlipidemia, unspecified: Code(s): E78.5 - Hyperlipidemia, unspecified Category: Medical Qualifiers: Hyperlipidemia type: unspecified Qualified Code(s): E78.5 - Hyperlipidemia, unspecified (4) Permanent atrial fibrillation: Code(s): I48.21 - Permanent atrial fibrillation Category: Medical Plan - Continue current management for anemia with routine monitoring, no immediate changes indicated as it remains stable. - Monitor irregular heartbeat; patient will continue to consult with ride mechanic as planned, with no immediate interventions required given stability. - Encourage weight management as the observed weight loss is not problematic; continue regular dietary habits and physical activity. - Maintain current vaccination status, ensuring up-to-date flu and COVID-19 vaccines. - Follow up with laboratory testing, including blood work, in six months to assess any changes related to Xeralto. - Remain vigilant about COVID-19 precautions and hygiene practices due to ongoing risks in the community. Orders: Orders Complete Blood Count Auto Diff 6 Months I48.21 - Permanent atrial fibrillation Comprehensive Met. Panel 6 Months I48.21 - Permanent atrial fibrillation Vitamin B12 and Folate 6 Months I48.21 - Permanent atrial fibrillation Free T4 (Free Thyroxine) 6 Months I48.21 - Permanent atrial fibrillation Ferritin 6 Months I48.21 - Permanent atrial fibrillation IRON PROFILE 6 Months I48.21 - Permanent atrial fibrillation Lipid Panel 6 Months E78.00 - Pure hypercholesterolemia, unspecified, I48.21 - Permanent atrial fibrillation Reticulocyte Count 6 Months I48.21 - Permanent atrial fibrillation Thyroid Stimulating Hormone 6 Months I48.21 - Permanent atrial fibrillation
[2024-05-15 08:44] VITALS: BP 130/64; PULSE 58; O2SAT 93; BMI 32.9
== END 2024-05-15 09:07 | disposition home or self-care (01) ==
PROVIDERS: PCP Internal Medicine; Visit Provider Internal Medicine
DX: D64.9 Anemia, unspecified (principal); E66.9 Obesity, unspecified; Z68.32 Body mass index [BMI] 32.0-32.9, adult; I48.21 Permanent atrial fibrillation; E78.5 Hyperlipidemia, unspecified

== ENCOUNTER → 2024-05-15 08:35 | Outpatient (BNVA) | payer MEDICARE, SELFPAY | PROVIDERS: PCP Internal Medicine; Visit Provider Internal Medicine | DX: D64.9 Anemia, unspecified (principal); E66.9 Obesity, unspecified; E78.5 Hyperlipidemia, unspecified; I48.21 Permanent atrial fibrillation | CPT/HCPCS: 96127; 99212 ==

== ENCOUNTER 2024-05-19 10:15 | Outpatient (AMB) | payer MEDICARE, SELFPAY ==
--- NOTE | 2024-05-19 10:24 | A.OFFVIS_ITS ---
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 He has permanent atrial fibrillation and doing well on Xarelto. Since last seen, he states he is doing good. No complaints like angina or shortness of breath or palpitations or presyncope or in fact anything cardiac sounding. He is getting along fine. 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 Son No problems noted. Social History Housing: House Alcohol intake: current Alcohol intake frequency: does not drink Alcohol type: beer Comment: 3-6 non alcoholic beers a day Patient Tobacco Use Status: Former Tobacco user Tobacco use type: Cigarette Years Smoked: 1999 e-Cigarette/Vaping Use: Never Used Second Hand Smoke Exposure: No service: No Current occupational status: retired Cognitive needs: No Hearing needs: No Vision needs: Yes (glasses) Review of Systems Const Denies chills, Denies fatigue, Denies fever(s), Denies weight gain and Denies weight loss ENT Denies dizziness Card Denies chest pain, Denies leg edema, Denies lightheadedness, Denies palpitations, Denies dyspnea on exertion, Denies orthopnea and Denies other Resp Denies cough and Denies dyspnea on exertion GI Denies hematochezia and Denies change in stool character Musc Denies abnormal gait, Denies muscle weakness, Denies numbness, Denies radiating pain into limb and Denies tingling Neuro Denies abnormal gait, Denies dizziness, Denies numbness and Denies tingling Endo Denies fatigue and Denies palpitations Physical Exam Vital Signs: Last Vital Signs Pulse 51 05/19/24 10:26 BP 134/66 05/19/24 10:26 BMI result Body Mass Index 33.2 Const General: comfortable and no acute distress Orientation/consciousness: patient oriented x3 HEENT Other: Unremarkable Head: Yes normal to inspection Neck Neck: Yes normal visual inspection Chest Chest palpation & inspection: normal inspection of the chest Resp Auscultation: clear to auscultation bilaterally Cardio Palpation: normal PMI Heart sounds: S1 normal heart sound present, S2 normal heart sound present, no gallops, no murmurs and no rubs GI Palpation (GI): Soft to palpation Back/Spine/Pelvis Other: unremarkable Skin General skin exam: no rashes or lesions noted Neuro General: patient oriented x3 Extrem General: Yes normal to inspection Psych Mental Status: mental status grossly normal Office Procedures EKG Details: EKG with atrial fibrillation at a rate of 51/Min; cannot exclude old inferior in farct versus normal variant. [id number], Complete Assessment & Plan Assessment & Plan (1) Permanent atrial fibrillation: Code(s): I48.21 - Permanent atrial fibrillation Category: Medical Plan Last echocardiogram 2020with LVEF of 60-65%, moderate biatrial enlargement, mild aortic regurgitation. In the last Holter monitor 2021, underlying rhythm is atrial fibrillation with an average rate of 57/Min. Sleep time pauses noted but nothing of major significance. He is on no rate control medications at this time. Continue anticoagulation without changes. Otherwise, stable. If any symptoms like dizziness/presyncope, advised to seek emergency help. He understands that. Coding Level of Care Code Est Pt Level 3 (92897) Diagnoses Permanent atrial fibrillation I48.21 CPT Codes EKG - CPT: 14819-[id number], Complete ([id number])
[2024-05-19 10:26] VITALS: BP 134/66; PULSE 51; BMI 33.2
== END 2024-05-19 10:46 | disposition home or self-care (01) ==
PROVIDERS: PCP Internal Medicine; Visit Provider Internal Medicine
DX: I48.21 Permanent atrial fibrillation (principal)
CPT/HCPCS: 93010; 99213

== ENCOUNTER → 2024-05-19 10:15 | Outpatient (BNVA) | payer MEDICARE, SELFPAY | PROVIDERS: PCP Internal Medicine; Visit Provider Internal Medicine | DX: I48.21 Permanent atrial fibrillation (principal); R94.31 Abnormal electrocardiogram [ECG] [EKG] | CPT/HCPCS: 93005; 99212 ==

== ENCOUNTER 2024-10-12 08:26 | Outpatient (REF) | payer MEDICARE, SELFPAY ==
--- OUTSIDE RECORDS SUMMARY | 2024-10-12 08:35 | XMS_ITS | Patient Health Record ---
Author Organization [facility] [place] Address [address] [place] [address] Care Team Providers Care Financial Developer Name Role Phone Vernon Cartwright Primary Care Provider Kathrine Rubio [phone] Reason For Referral No Information Medications Medication SIG (Take, Route, Frequency, Duration) Notes Start Date End Date Status simvastatin Active Xarelto Active Social History Tobacco use other than smoking: Question Answer Notes Are you an other tobacco user? No Problems No Known Problems Plan Of Treatment No Information Insurance Providers Payer Name Payer Address Payer Phone Subscriber Number Group Number Insured Name Patient Relationship to Insured Coverage Start Date Coverage End Date Medicare National [employer] [address] [facility] [place] [address] [id number] Steve Oden Self - patient is the insured [employer] [address] [place] [address] [phone] [id number] Steve Oden Self - patient is the insured Medical (General) History Medical History History ICD Code Cholesterol Chicken pox Surgical History Surgery Date(Month/Year) sinus surgery
[2024-10-12 08:45] LABS: MANUAL DIFF FLAG NO
[2024-10-12 09:05] LABS: Basophils Percent Auto 0.7 % (0-2); Eosinophils Absolute Auto 0.2 X10*3/uL (0.0-0.4); Hemoglobin 13.7 g/dl (14.0-18.0); Imm Gran Abs Auto 0.03 X10*3/uL (0.00-0.03); Imm Gran Pct Auto 0.5 % (0.0-0.4); Immature Retic Fraction 15.1 % (2.3-13.4); Lymphocytes Absolute Auto 1.7 X10*3/uL (1.2-4.9); Lymphocytes Percent Auto 28.9 % (20-40); Mean Corpuscular HGB Conc 33.4 g/dl (31.0-36.0); Mean Corpuscular Hemoglobin 32.2 pg (27.0-33.0); Mean Corpuscular Volume 96.2 fL (80.0-98.0); Monocytes Absolute Auto 0.8 X10*3/uL (0.1-1.2); Monocytes Percent Auto 12.9 % (2-11); Neutrophils Absolute Auto 3.1 x10*3/uL (2.0-8.3); Platelet Count 152 X10*3/uL (160-400); Red Blood Count 4.26 X10*6/uL (4.60-5.80); Red Cell Distribution Width 15.9 % (11.0-16.0); Retic HGB Equivalent 34.3 pg (30.0-35.0); Reticulocyte Percent 1.6 % (0.5-1.8); Reticulocytes Absolute 0.069 X10*6/uL (0.026-0.095); White Blood Count 5.8 X10*3/uL (4.8-10.8)
[2024-10-12 10:05] LABS: Alanine Aminotransferase 23 U/L (0-40); Albumin Level 4.3 g/dL (3.5-5.0); Alkaline Phosphatase 58 U/L (39-117); Anion Gap 7 (12-20); Aspartate Amino Transferase 27 U/L (5-37); Bilirubin Total 1.6 mg/dL (0.0-1.0); Blood Urea Nitrogen 11 mg/dL (9-16); Calcium 9.3 mg/dL (8.4-10.2); Carbon Dioxide 29 mmol/L (22-29); Chloride 107 mmol/L (96-108); Cholesterol 125 mg/dL (<200); Estimated Glomerular Filt Rate > 60; Glucose Random 92 mg/dL (60-115); HDL Cholesterol 44 mg/dL (>40); Iron 134 mcg/dL (45-160); LDL Cholesterol Calculated 70 mg/dL (<100); Percent Iron Saturation 45 % (15-50); Potassium 3.9 mmol/L (3.3-5.1); Sodium 139 mmol/L (135-145); Total Iron Binding Capacity 301 mcg/dL (228-428); Total Protein 8.4 g/dL (6.5-8.0); Triglycerides 57 mg/dL (<150); Unsaturated Iron Binding 167 ug/dL
[2024-10-12 10:12] LABS: Ferritin 134 ng/mL (20-250); Free T4 (Free Thyroxine) 0.94 ng/dL (0.71-1.85); Thyroid Stimulating Hormone 2.31 uIU/mL (0.32-4.0)
[2024-10-12 10:23] LABS: Folate 14.4 ng/mL (> or = 4.0); Vitamin B12 502 pg/mL (200-900)
== END 2024-10-12 08:27 | disposition home or self-care (01) ==
LOC: HO.LAB 08:26
PROVIDERS: PCP Internal Medicine; Visit Provider Internal Medicine
DX: I48.21 Permanent atrial fibrillation (principal); E78.00 Pure hypercholesterolemia, unspecified
CPT/HCPCS: 36415; 80053; 80061; 82607; 82728; 82746; 83540; 84439; 84443; 85025; 85045

== ENCOUNTER 2024-10-13 08:25 | Outpatient (AMB) | payer MEDICARE, SELFPAY ==
--- NOTE | 2024-10-13 08:29 | A.OFFVIS_ITS ---
"Intake Vital Signs 10/13/24 08:31 Height 5 ft 8 in Weight 216 lb 2 oz BMI 32.9 BP 110/62 Blood Pressure Location Lt brachial Position Sitting Pulse 57 Pulse Source Pulse Oximeter Temp 97.3 F Temp Source Temporal Artery Scan Pulse Oximetry (%) 97 Oxygen Delivery Method Room Air Intake Visit Reasons: A fib SWV Intake Note: Patient is here for an Annual Wellness Visit. 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 Bernal cardiology I and [facility] for Ophthalmology gastroenterology Dr. Nicole [facility] Medical History (Updated 10/13/24 @ 08:56 by Vernon Cartwright MD) Preoperative clearance Vitamin D deficiency Obesity (BMI 30-39.9) Hyperlipidemia, unspecified intermediate current use of anticoagulant Permanent atrial fibrillation Surgical History H/O eye surgery History of sinus surgery Family History Father Medical history unknown Mother Medical history unknown Sister No problems noted. Son No problems noted. Social History Housing: House Alcohol intake: current Alcohol intake frequency: does not drink Alcohol type: beer Comment: 3-6 non alcoholic beers a day Patient Tobacco Use Status: Former Tobacco user Tobacco use type: Cigarette Years Smoked: 1999 e-Cigarette/Vaping Use: Never Used Second Hand Smoke Exposure: No service: No Current occupational status: retired Cognitive needs: No Hearing needs: No Vision needs: Yes (glasses) Questionnaire Medicare Wellness Checkup What is your age?: 82 or older What gender do you identify with?: male During the past 4 weeks, how much have you been bothered by emotional problems such as feeling anxious, depressed, irritable, sad or downhearted, and blue?: not at all During the past 4 weeks, has your physical & emotional health limited your social activities with family, friends, neighbors, or groups?: not at all During the past 4 weeks, how much bodily pain have you generally had?: very mild pain During the past 4 weeks, was someone available to help you if you needed & wanted help?: yes, as much as I wanted During the past 4 weeks, what was the hardest physical activity you could do for at least 2 minutes?: moderate Can you get to places out of walking distance without help? (For eg., can you travel alone on buses, taxis or drive your car?): Yes Can you go shopping for groceries or clothes without someone's help?: Yes Can you prepare your own meals?: Yes Can you do your housework without help?: Yes Because of any health problems, do you need the help of another person with your personal care needs such as eating, bathing, dressing or getting around the house?: No Can you handle your own money without help?: Yes During the past 4 weeks, how would you rate your health in general?: very good During the past 4 weeks how have things been going for you?: pretty well Are you having difficulties driving your car?: no Do you always fasten your seat belt when you are in a car?: yes, usually During past 4 weeks, have you been bothered by the following: never: Trouble eating well?, Teeth or denture problems? and Problems using the telephone? and seldom: Falling or dizzy when standing up, Sexual problems? and Tiredness or fatigue? Have you fallen 2 or more times in the past year?: No Are you afraid of falling?: Yes Are you a smoker?: no During the past 4 weeks, how many drinks of wine, beer, or other alcoholic beverages did you have?: 10 or more per week Do you exercise for about 20 minutes 3 or more times a week?: no, I usually do not exercise this much Have you been given information to help with the following?: no: Hazards in your house that might hurt you? and no: Keeping track of your medications? How often do you have trouble taking medicines the way you have been told to take them?: I always take medicine as prescribed How confident are you that you can control & manage most of your health problems?: very confident What is your race?: White PHQ-9 Over the last 2 weeks, how often have you been bothered by any of the following problems? 1. Little interest or pleasure in doing things: not at all 2. Feeling down, depressed, or hopeless: not at all 3. Trouble falling or staying asleep, or sleeping too much: not at all 4. Feeling tired or having little energy: not at all 5. Poor appetite or overeating: not at all 6. Feeling bad about yourself - or that you are a failure or have let yourself or your family down: not at all 7. Trouble concentrating on things, such as reading the newspaper or watching television: several days 8. Moving or speaking so slowly that other people could have noticed. Or the opposite - being so fidgety or restless that you have been moving around a lot more than usual: not at all 9. Thoughts that you would be better off or of hurting yourself in some way: not at all Total score: 1 Source: Developed by Drs. Gopi Lee, Andra Germain, Antwan Iglesias and colleagues, with an educational david from [employer] - innovate | mentor | invest. Thrive Questionnaire Date Thrive assessed: 05/15/24 JEANINE-7 AMB Questionnaire JEANINE-7 Date JEANINE - 7 assessed: 05/15/24 Source: Developed by Drs. Gopi Lee, Andra Germain, Antwan Iglesias and colleagues, with an educational david from [employer] - innovate | mentor | invest. Review of Systems Const Denies poor appetite and Denies weakness Eyes Denies no additional complaints ENT Reports Normal hearing present, Denies dizziness, Denies nasal congestion, Denies tinnitus and Denies sore throat Card Denies chest pain, Denies syncope, Denies rapid heart rate and Denies dyspnea Resp Denies cough and Denies dyspnea GI Denies change in stool character, Reports constipation, Denies diarrhea, Denies nausea and Denies vomiting Denies dysuria and Denies urinary frequency Neuro Reports Normal hearing present, Denies confusion, Denies dizziness, Denies syncope and Denies weakness Psych Denies confusion Physical Exam Vital Signs: Last Vital Signs Temp 97.3 F 10/13/24 08:31 Pulse 57 10/13/24 08:31 BP 110/62 10/13/24 08:31 Pulse Ox 97 10/13/24 08:31 Oxygen Delivery Method Room Air 10/13/24 08:31 BMI result Body Mass Index 32.9 Const General: No confusion Orientation/consciousness: No confusion HEENT Head: Yes normocephalic Ears: external ears normal and TM's normal bilaterally Face and sinus: Yes normal facial exam Mouth: moist mucous membranes Throat: Yes tonsils normal Eyes Conjunctivae: conjunctivae normal Pupils: Equal, round and reactive pupils present and Pupil accommodation reflex normal Direct Ophthalmoscopy: normal light reflex Neck Neck: No lymphadenopathy Thyroid: Thyroid normal Chest Chest palpation & inspection: normal inspection of the chest Resp Effort & Inspection: normal respiratory effort and no audible wheezes Auscultation: clear to auscultation bilaterally, no crackles, no wheezes and lung sounds not diminished Cardio Rate: regular rate Rhythm: regular rhythm Peripheral pulses: radial pulses present and dorsalis pedis present GI Other: guaiac negative prostateN Palpation (GI): no masses Auscultation: normal bowel sounds and normoactive bowel sounds Rectal Exam - Male: Yes deferred Male General Exam: Yes normal external exam Skin General skin exam: no rashes or lesions noted Rashes: no rashes Neuro General: No confusion Cranial nerves: Yes Equal, round and reactive pupils present and Yes Normal hearing present Cognition (Neuro): normal cognition Gait exam (Neuro): Normal gait present Motor exam (neuro): 5/5 motor strength present throughout Deep tendon reflexes (DTR's): Right brachioradialis reflex intensity grade: 2+, Left brachioradialis reflex intensity grade: 2+, Right patellar reflex intensity grade: 2+ and Left patellar reflex intensity grade: 2+ Extrem General: No edema Assessment & Plan Assessment & Plan (1) Medicare annual wellness visit, subsequent: Code(s): Z00.00 - Encounter for general adult medical examination without abnormal findings Plan: Patient is advised to eat healthy, keep well hydrated, keep active and have adequate sleep. (2) Obesity (BMI 30-39.9): Code(s): E66.9 - Obesity, unspecified Plan: Diet and exercise (3) Permanent atrial fibrillation: Code(s): I48.21 - Permanent atrial fibrillation Plan: Patient continues to follow-up with cardiology and continuing with anticoagulation with Xarelto (4) Hyperlipidemia, unspecified: Code(s): E78.5 - Hyperlipidemia, unspecified Qualifiers: Hyperlipidemia type: unspecified Qualified Code(s): E78.5 - Hyper lipidemia, unspecified Plan: Avoid fried foods, chicken skin, eggs, butter margarine, pastries and meat. Be it pork or beef they have a lot of cholesterol on simvastatin October 2024 last blood (5) Peripheral vascular disease: Code(s): I73.9 - Peripheral vascular disease, unspecified Plan: When sitting down elevate the legs, exercise, and support stockings (6) Anemia: Code(s): D64.9 - Anemia, unspecified Plan: Chronic anemia and stable Plan History of Present Illness The patient is an 89-year-old male presenting with an annual wellness visit. He follows up with cardiology regularly for atrial fibrillation and is currently on Xarelto for anticoagulation. The last echocardiogram displayed a normal ejection fraction. His labs reveal chronic anemia and mild thrombocytopenia, consistent with previous findings, and his cholesterol is adequately managed on simvastatin with an LDL of 70. He also has a history of cataracts, which were surgically treated in 2022, and hemorrhoids that occasionally cause rectal bleeding. He denies dizziness or new medical issues, although he experiences slight lightheadedness sporadically. He manages this with supportive railings in his home environment. Health Maintenance - Blood pressure monitored; currently within normal range. - No known medication allergies. - Dietary consultation for obesity management. - Regular exercise encouraged; mobility supported with home railings and cane usage. - Vaccinations up to date, including tetanus, shingles, pneumonia, and COVID-19. - Annual eye examination completed in May or June; advised laser follow- up for posterior capsule opacification if disturbance occurs. - Regular cardiology follow-up for atrial fibrillation. - Blood work scheduled semi-annually to monitor the effects of anticoagulation therapy (Xarelto). Social History - Does not engage in employment; mobility facilitated at home with railings and cane usage. - Lives independently; provisions for support in place. - No smoking or alcohol use, having ceased these practices approximately 20 years ago. - Non-alcoholic beer consumption noted. - Active in at-home activities, uses stairs without shortness of breath but takes one step at a time. - Manages symptoms related to lightheadedness without specific medical intervention. Review of Systems - Cardiovascular: Denies chest pain, palpitations, and heaviness. - Respiratory: Denies shortness of breath, even with activity. - Gastrointestinal: Mild rectal bleeding attributed to hemorrhoids; denies constipation. - Neurological: Reports mild, sporadic lightheadedness; denies dizziness, nausea, or vomiting. - Musculoskeletal: Denies joint pain; relies on cane for balance. - Genitourinary: Wakes three times per night for urination; denies dysuria. - Eyes: Sight checked annually; mild posterior capsule opacification noted. - Ears: Denies hearing difficulties; no hearing aid. - Dermatological: No recent issues. - Immunological: Up to date on vaccinations. Physical Exam General: Cooperative, healthy appearing, comfortable, no acute distress and well developed Orientation: Patient oriented x3 Limitations: No limitations Head: Normal to inspection Ears: Hearing grossly normal bilaterally Nose: Normal external nose present Face and sinus: Normal facial exam Eyes: Appearance normal, both eyes and all related structures Neck: Normal visual inspection and Yes full ROM Respiratory: Normal respiratory effort and able to speak in complete sentences. Clear to auscultation bilaterally Cardiovascular: Regular rate and rhythm. Normal S1 and S2 GI: Normal to inspection. Soft to palpation and nontender Skin: No rashes or lesions noted Neuro: Patient oriented x3 Extremities: Normal to inspection Results - Labs: - Hemoglobin stable at 13.7, mild thrombocytopenia noted. - Electrolytes are within normal limits. - Renal and liver function tests within normal ranges. - Cholesterol: LDL at 70. - Previous echocardiogram showed normal ejection fraction. Plan The patient's current treatment regimen for atrial fibrillation, including anticoagulation with Xarelto, will continue with semi-annual lab tests for monitoring. For cholesterol management, simvastatin remains the treatment choice given the favorable lipid profile. The patient?s mild thrombocytopenia and chronic anemia do not necessitate changes in management. Regular follow-ups with cardiology are advised. For recent concerns with possible posterior capsule opacification, ophthalmology follow-up is planned, and safety measures at home are reinforced to prevent falls. Vaccination status is current, and lifestyle modifications like diet and exercise are encouraged. Patient was informed and verbally consented to the use of an ambient scribe for clinic note documentation during this visit. Discussion Notes I presented the patient with a detailed review of each condition, management strategy, and explained the importance of regular monitoring given his comprehensive medical history. Given the patient's active use of Xarelto, I reiterated the necessity for periodic blood tests to ensure no adverse effects on renal function. We discussed the continuation of simvastatin given his favorable cholesterol levels. Benefits and potential risks or complications of his current medication were discussed and understood. I stressed the importance of immediate follow-up should his symptoms change or worsen, particularly his mild lightheadedness, and reinforced safety precautions due to his history of falls. Discussions on preventive health focused on diet, exercise, and current safety measures in place. Patient Instructions - Continue Xarelto as prescribed and ensure follow-ups for blood work every six months. - Maintain current use of simvastatin for cholesterol management. - Ensure regular ophthalmology visits; report any vision changes. - Practice safety at home using railings. - Maintain a healthy diet and exercise regularly to manage weight. - Monitor rectal bleeding and report changes to medical history. - Stay adherent to vaccination schedule. - Return sooner if experiencing new symptoms like dizziness or chest pain. - Implement appropriate lifestyle changes, avoiding falls. - Follow up with cardiology as needed. Orders: Orders Complete Blood Count Auto Diff 6 Months I48.21 - Permanent atrial fibrillation Comprehensive Met. Panel 6 Months I48.21 - Permanent atrial fibrillation Ferritin 6 Months I48.21 - Permanent atrial fibrillation Reticulocyte Count 6 Months I48.21 - Permanent atrial fibrillation IRON PROFILE 6 Months I48.21 - Permanent atrial fibrillation Lipid Panel 6 Months E78.00 - Pure hypercholesterolemia, unspecified, I48.21 - Permanent atrial fibrillation Vitamin B12 and Folate 6 Months I48.21 - Permanent atrial fibrillation Medications: Changed From Xarelto (rivaroxaban) 20 mg PO BEDTIME 90 tabs 3RF NS I48.91 - Unspecified atrial fibrillation To Xarelto (rivaroxaban) Insurance wants 30 days scripts only 20 mg PO BEDTIME 30 tabs 3RF NS I48.91 - Unspecified atrial fibrillation Quality Reporting (2019) Depression/Bipolar (159/160/161/177) PHQ-9: Total score: 1 Coding Level of Care Code Medicare Subsequent (G0439) Diagnoses Medicare annual wellness visit, subsequent Z00.00 Obesity (BMI 30-39.9) E66.9 Permanent atrial fibrillation I48.21 Hyperlipidemia, unspecified hyperlipidemia type E78.5 Hyperlipidemia type: unspecified Peripheral vascular disease I73.9 Anemia D64.9"
[2024-10-13 08:31] VITALS: BP 110/62; PULSE 57; TEMP 36.3; O2SAT 97; BMI 32.9
--- OUTSIDE RECORDS SUMMARY | 2024-10-13 08:39 | XMS_ITS | Patient Health Record ---
Author Organization [facility] [place] Address [address] [place] [address] Care Team Providers Care Cigarette Packer Name Role Phone Vernon Cartwright Primary Care Provider Kathrine Rubio [phone] Reason For Referral No Information Medications Medication [...] Medicare National Govt Svcs Inc [address] [facility] [place] [address] [id number] Steve Oden Self - patient is the insured [employer] [address] [place] [address] [phone] [id number] Steve Oden Self - patient is the insured Medical (General) History Medical History History ICD Code Cholesterol Chicken pox Surgical History Surgery Date(Month/Year) sinus surgery
== END 2024-10-13 09:21 | disposition home or self-care (01) ==
LOC: HO.HMCH 08:25
PROVIDERS: PCP Internal Medicine; Visit Provider Internal Medicine
DX: Z00.00 Encounter for general adult medical examination without abnormal findings (principal); E66.9 Obesity, unspecified; I48.21 Permanent atrial fibrillation; Z68.29 Body mass index [BMI] 29.0-29.9, adult; E78.5 Hyperlipidemia, unspecified; I73.9 Peripheral vascular disease, unspecified; D64.9 Anemia, unspecified

== ENCOUNTER → 2024-10-13 08:25 | Outpatient (BNVA) | payer MEDICARE, SELFPAY | PROVIDERS: PCP Internal Medicine; Visit Provider Internal Medicine | DX: Z13.89 Encounter for screening for other disorder (principal) ==

== ENCOUNTER 2024-11-26 10:33 | Outpatient (AMB) | payer MEDICARE, SELFPAY ==
[2024-11-26 10:38] VITALS: BP 122/68; PULSE 62; BMI 32.8
--- NOTE | 2024-11-26 10:38 | A.OFFVIS_ITS ---
Vital Signs 11/26/24 10:38 Height 5 ft 8 in Weight 216 lb BMI 32.8 BP 122/68 Blood Pressure Location Lt brachial Position Sitting Pulse 62 Pulse Source Pulse Oximeter Intake Visit Reasons: 6m follow up Allergies bee pollen (Bee Stings) Allergy (Unknown, Verified 10/13/24 08:31) UNKNOWN Medication List - Last Reconciled 11/26/24 by Woo Bernal MD cholecalciferol (vitamin D3) 25 mcg PO DAILY mupirocin 2% 1 appl topical BID-TID simvastatin 20 mg PO QPM Xarelto (rivaroxaban) 20 mg PO BEDTIME NS HPI Comments Details: Steve returns for follow-up regarding atrial fibrillation. He has permanent atrial fibrillation and doing well on Xarelto. Overall, he is feeling well. No cardiac symptoms. No falls or bleeding. 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 Son No problems noted. Social History Housing: House Alcohol intake: current Alcohol intake frequency: does not drink Alcohol type: beer Comment: 3-6 non alcoholic beers a day Patient Tobacco Use Status: Former Tobacco user Tobacco use type: Cigarette Years Smoked: 1999 e-Cigarette/Vaping Use: Never Used Second Hand Smoke Exposure: No service: No Current occupational status: retired Cognitive needs: No Hearing needs: No Vision needs: Yes (glasses) Review of Systems Const Denies weakness ENT Denies dizziness Card Denies chest pain, Denies chest pain with activity, Denies syncope, Denies rapid heart rate, Denies pedal edema, Denies edema, Denies leg edema, Denies lightheadedness, Denies palpitations, Denies dyspnea, Denies dyspnea on exertion and Denies orthopnea Resp Denies cough, Denies dyspnea and Denies dyspnea on exertion GI Denies hematochezia and Denies change in stool character Musc Denies abnormal gait, Denies muscle cramps, Denies muscle weakness, Denies numb ness, Denies radiating pain into limb and Denies tingling Neuro Denies abnormal gait, Denies dizziness, Denies syncope, Denies numbness, Denies tingling and Denies weakness Endo Denies palpitations Physical Exam Vital Signs: Last Vital Signs Pulse 62 11/26/24 10:38 BP 122/68 11/26/24 10:38 BMI result Body Mass Index 32.8 Const General: comfortable and no acute distress Orientation/consciousness: patient oriented x3 HEENT Other: Unremarkable Head: Yes normal to inspection Neck Neck: Yes normal visual inspection Chest Chest palpation & inspection: normal inspection of the chest Resp Auscultation: clear to auscultation bilaterally Cardio Palpation: normal PMI Heart sounds: S1 normal heart sound present, S2 normal heart sound present, no gallops, no murmurs and no rubs GI Palpation (GI): Soft to palpation Back/Spine/Pelvis Other: unremarkable Skin General skin exam: no rashes or lesions noted Neuro General: patient oriented x3 Extrem General: Yes normal to inspection Psych Mental Status: mental status grossly normal Assessment & Plan Assessment & Plan (1) Permanent atrial fibrillation: Code(s): I48.21 - Permanent atrial fibrillation Category: Medical Plan Echocardiogram 2020-LVEF of 60-65%, moderate biatrial enlargement, mild aortic regurgitation. Holter monitor 2021- atrial fibrillation with an average rate of 57/Min. Sleep time pauses noted but nothing of major significance. He is on no rate control medications at this time. Continue anticoagulation without changes. Otherwise, stable. Advised to call immediately with any cardiac symptoms. Discussion Notes I discussed with the patient that his atrial fibrillation is currently stable and does not require any changes to his treatment plan. We agreed to maintain his current medication regimen and to monitor his condition with annual follow- ups. I advised him to continue using his cane to aid in balance and to prevent falls. Patient was informed and verbally consented to the use of an ambient scribe for clinic note documentation during this visit. Patient Instructions: - Continue taking prescribed blood thinners as directed. - Use a cane for stability to prevent falls. - Contact the clinic if new symptoms or concerns arise. Coding Level of Care Code Est Pt Level 3 (15033) Diagnoses Permanent atrial fibrillation I48.21
--- OUTSIDE RECORDS SUMMARY | 2024-11-26 11:25 | XMS_ITS | Patient Health Record ---
Author Organization [facility] Address [address] [place] [address] Care Team Providers Care Bed Machine Operator Name Role Phone Marco Gordillo MD Primary Care Provider Gopi Chau Unavailable [phone] Reason For Referral No Information Medications Medication SIG (Take, Route, Fr equency, Duration) Notes Start Date End Date Status Aspirin 325mg Active Simvastatin 20mg Act micheline Problems Problem Type SNOMED Code ICD Code Onset Dates Problem Status W/U Status Risk Notes Problem Colon cancer screening (V76.51) Active confirmed Plan Of Treatment Future Test Test Name Order Date COLONOSCOPY 01/03/2012 Insurance Providers Payer Name Payer Address Payer Phone Subscriber Number Group Number Insured Name Patient Relationship to Insured Coverage Start Date Coverage End Date MEDICARE OF [place] [address] [place] [address] [id number] TAMILANG Self - patient is the insured [employer] CLAIMS [address] [place] [address] [id number] TAIM LANG Self - patient is the insured Medical (General) History Medical History History ICD Code colonoscopy 01-26-2002 Hyperlipidemia vertigo Denies [place],DM,CVA,Lung disease,renal dise ase Afib Surgical History Surgery Date(Month/Year) hemorrhoid surgery sinus surgery
--- OUTSIDE RECORDS SUMMARY | 2024-11-26 11:25 | XMS_ITS | Patient Health Record ---
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 [place] [address] [id number] Steve Oden Self - patient is the insured [employer] [address] [place] [address] [id number] Steve Oden Self - patient is the insured Medical (General) History Medical History History ICD Code Cholesterol Chicken pox Surgical History Surgery Date(Month/Year) sinus surgery
== END 2024-11-26 10:49 | disposition home or self-care (01) ==
LOC: HO.HCS 10:33
PROVIDERS: PCP Internal Medicine; Visit Provider Internal Medicine
DX: I48.21 Permanent atrial fibrillation (principal)
CPT/HCPCS: 99213

== ENCOUNTER → 2024-11-26 10:33 | Outpatient (BNVA) | payer MEDICARE, SELFPAY | PROVIDERS: PCP Internal Medicine; Visit Provider Internal Medicine | DX: I48.21 Permanent atrial fibrillation (principal) | CPT/HCPCS: 99212 ==

== ENCOUNTER 2025-04-12 08:23 | Outpatient (REF) | payer MEDICARE, SELFPAY ==
[2025-04-12 08:41] LABS: MANUAL DIFF FLAG NO
[2025-04-12 08:51] LABS: Hematocrit 40.4 % (42.0-52.0); Hemoglobin 13.4 g/dl (14.0-18.0); Imm Gran Abs Auto 0.03 X10*3/uL (0.00-0.03); Imm Gran Pct Auto 0.5 % (0.0-0.4); Lymphocytes Absolute Auto 1.6 X10*3/uL (1.2-4.9); Mean Corpuscular HGB Conc 33.2 g/dl (31.0-36.0); Mean Corpuscular Hemoglobin 31.8 pg (27.0-33.0); Mean Corpuscular Volume 96.0 fL (80.0-98.0); NRBC Abs Auto 0.020 X10*3/uL (0.0-0.012); NRBC Pct Auto 0.3 /100WBC (0.0-0.2); Platelet Count 162 X10*3/uL (160-400); Red Blood Count 4.21 X10*6/uL (4.60-5.80); Reticulocytes Absolute 0.067 X10*6/uL (0.026-0.095); White Blood Count 5.9 X10*3/uL (4.8-10.8)
[2025-04-12 09:19] LABS: Alanine Aminotransferase 19 U/L (0-40); Albumin Level 4.3 g/dL (3.5-5.0); Alkaline Phosphatase 94 U/L (39-117); Anion Gap 9 (12-20); Aspartate Amino Transferase 28 U/L (5-37); Blood Urea Nitrogen 11 mg/dL (9-16); Calcium 9.3 mg/dL (8.4-10.2); Carbon Dioxide 26 mmol/L (22-29); Chloride 106 mmol/L (96-108); Cholesterol 115 mg/dL (<200); Estimated Glomerular Filt Rate > 60; HDL Cholesterol 39 mg/dL (>40); Iron 85 mcg/dL (45-160); Percent Iron Saturation 30 % (15-50); Potassium 4.0 mmol/L (3.3-5.1); Sodium 137 mmol/L (135-145); Total Iron Binding Capacity 279 mcg/dL (228-428); Total Protein 9.1 g/dL (6.5-8.0); Triglycerides 44 mg/dL (<150); Unsaturated Iron Binding 194 ug/dL
[2025-04-12 09:39] LABS: Ferritin 150 ng/mL (20-250)
[2025-04-12 09:47] LABS: Folate 13.6 ng/mL (> or = 4.0); Vitamin B12 397 pg/mL (200-900)
== END 2025-04-12 08:24 | disposition home or self-care (01) ==
LOC: HO.LAB 08:23
PROVIDERS: PCP Internal Medicine; Visit Provider Internal Medicine
DX: I48.21 Permanent atrial fibrillation (principal); E78.00 Pure hypercholesterolemia, unspecified
CPT/HCPCS: 36415; 80053; 80061; 82607; 82728; 82746; 83540; 85025; 85045